=== PATIENT | female | born 1955 | race Caucasian/White ===

== ENCOUNTER 2019-02-24 18:19 | Emergency (ER) | payer MEDICAID, OTHER ==
[~2019-02-24] VITALS: Ht 160 cm; Wt 55.0 kg
--- NOTE | 2019-02-24 18:34 | NUR ---
PT IS FROM [place]. PT AND HAVE BEEN ON AN EXTENDED CRUISE VACATION FROM [facility] TO [facility], THROUGH THE [facility]. WERE ON THE WAY HOME ON AN AMTRAK TRAIN WHEN PT BECAME FEBRILE UP TO 100.9*. PT IS CURRENTLY BEING TREATED FOR NON-HODGKINS LYMPHOMA AND WAS TOLD TO SEEK MEDICAL HELP FOR ANY TEMPERATURE >100.4*. PT C/O COUGH, NEW ONSET TODAY WELL. GIVEN TYLENOL MANAGER OF COMPLIANCE BY [facility], TEMPERATURE NOW 98.6. MONITORS ATTACHED, CHART UP FOR REVIEW.
--- NOTE | 2019-02-24 19:00 | NUR ---
RECEIVED REPORT FROM HERB. ASSUMED CARE OF PT. PT C/O INCREASING DRY, NONPRODUCTIVE COUGH, DENIES C/O PAIN AT THIS TIME. PT AMBULATED TO BR W/ STANDBY ASSISTANCE. AWARE PENDING REVIEW BY SATISH.
[2019-02-24 20:04] LABS: BASOPHILS % (AUTO) 0 % (0-1); EOSINOPHILS # (AUTO) 0.06 x10^3/uL (0-0.4); EOSINOPHILS % (AUTO) 1 % (1-7); LYMPHOCYTES # (AUTO) 0.16 x10^3/uL (1-3.4); LYMPHOCYTES % (AUTO) 4 % (22-44); MD NO; MEAN CORPUSCULAR HEMOGLOBIN 30.5 pg (27.0-34.8); MEAN CORPUSCULAR HGB CONC 33.7 g/dL (32.4-35.8); MEAN CORPUSCULAR VOLUME 90.4 fL (80-100); MEAN PLATELET VOLUME 7.4 fL (7.4-10.4); MONOCYTES # (AUTO) 0.57 x10^3/uL (0.2-0.8); MONOCYTES % (AUTO) 13 % (2-9); NEUTROPHILS # (AUTO) 3.52 x10^3/uL (1.8-6.8); NEUTROPHILS % (AUTO) 82 % (42-75); PLATELET COUNT 158 x10^3/uL (130-400); RED BLOOD COUNT 4.16 x10^6/uL (3.82-5.3); RED CELL DISTRIBUTION WIDTH 15.5 % (9.6-15.2)
[2019-02-24 20:11] LABS: ALBUMIN 3.7 g/dL (3.4-5.0); ANION GAP 6 mmol/L (5-15); CALCIUM 9.1 mg/dL (8.5-10.1); CHLORIDE 109 mmol/L (98-107); CREATININE 0.62 mg/dL (0.55-1.02)
--- NOTE | 2019-02-24 20:12 | NUR ---
PT UPDATED ON POC INCLUDING PENDING TESTS AND CHART REVIEW BY ERP. PT AWARE NEED URINE SAMPLE.
--- NOTE | 2019-02-24 20:52 | NUR ---
PT AMBULATED TO . URINE COLLECTED AND SENT TO LAB. PT NOTED TO HAVE WEAK, DRY, NONPRODUCTIVE COUGH, DENIED FEELING SHORT OF BREATH DURING AMBULATION.
[2019-02-24] MEDS ORDERED: PANT20TA3 PO (20:57)
--- NOTE | 2019-02-24 20:58 | NUR ---
PT TAKES OTC VITAMINS, DOES NOT KNOW THE DOSAGES. MED REC PARTIALLY COMPLETED.
[2019-02-24 21:07] LABS: MICROSCOPIC AUTO
[2019-02-24 21:10] LABS: CULTURE INDICATED? YES
[2019-02-24 21:19] LABS: RAPID INFLUENZA A Negative (Negative); RAPID INFLUENZA B Negative (Negative)
[2019-02-24] MEDS ORDERED: AZITHROMYCIN 250 MG TABLET ONE (21:55)
[2019-02-24] MEDS ORDERED: AZITHROMYCIN 500 MG TABLET PO ONE (22:00)
[2019-02-24 22:51] VITALS: BP 122/78
--- NOTE | 2019-02-24 22:52 | NUR ---
REVIEWED DISCHARGE INSTRUCTIONS AND PRESCRIPTIONS W/ PT AND SPOUSE, VERBALIZED UNDERSTANDING TO INFORMATION PROVIDED INCLUDING FOLLOW UP CARE, RETURN PRECAUTIONS AND MEDICATIONS. PT DENIED QUESTIONS/CONCERNS, DENIED C/O PAIN OR FEELING SHORT OF BREATH. PT AMBULATED FROM ED W/ SPOUSE.
== END 2019-02-24 22:54 | disposition home or self-care (01) ==
LOC: ED 22:45
DX: R50.9 Fever, unspecified (principal); R05 Cough; C85.90 Non-Hodgkin lymphoma, unspecified, unspecified site; Z92.21 Personal history of antineoplastic chemotherapy
CPT/HCPCS: 36415; 71045; 80048; 81001; 82040; 83605; 84145; 85025; 87040; 87086; 87400; 99284